=== PATIENT | female | born 1985 | race Caucasian/White ===

== ENCOUNTER 2019-06-26 12:42 | Emergency (ER) | payer OTHER ==
[~2019-06-26] VITALS: Ht 172.7 cm; Wt 68.2 kg
[2019-06-26] MEDS ORDERED: KEFL500C17 PO (14:13)
[2019-06-26 14:27] VITALS: BP 116/62
== END 2019-06-26 14:28 | disposition home or self-care (01) ==
LOC: M ED 12:42
DX: L03.114 Cellulitis of left upper limb (principal); T63.441A Toxic effect of venom of bees, accidental (unintentional), initial encounter; X58.XXXA Exposure to other specified factors, initial encounter; Y92.89 Other specified places as the place of occurrence of the external cause; F17.200 Nicotine dependence, unspecified, uncomplicated